=== PATIENT | female | born 1995 | race African-American/Black ===

== ENCOUNTER 2020-04-14 10:16 | Outpatient (CLI) | payer OTHER, SELFPAY ==
--- NOTE | ~2020-04-14 | US_ITS ---
EXAMINATION: US venous doppler LE RT EXAM DATE: 04/14/2020 10:58 INDICATION: Right leg pain. TECHNIQUE: Multiple grayscale, color flow and Doppler images of the right lower extremity deep venous system were obtained and reviewed. There is no prior study for comparison. FINDINGS: The right common femoral, femoral and profunda veins demonstrate normal color flow, respira tory variation, augmentation and compressibility. Compressibility, color flow confirmed within the r ight popliteal, posterior tibial, peroneal, and greater saphenous veins. IMPRESSION: 1. No right lower extremity deep venous thrombosis. Reviewed, dictated and finalized at location A.
== END 2020-04-14 10:17 | disposition home or self-care (01) ==
PROVIDERS: PCP Registered Nurse; Visit Provider Registered Nurse
DX: M79.661 Pain in right lower leg (principal)
CPT/HCPCS: 93971

== ENCOUNTER 2024-12-05 09:35 | Outpatient (CLI) | payer OTHER, SELFPAY ==
--- OUTSIDE RECORDS SUMMARY | 2024-12-05 10:19 | XMS_ITS | Clinical Summary ---
Author Organization [facility] Address [address] [place] [address] Phone Care Team Providers Care Human Resources Office Assistant Name Role Phone Provider, None Primary Care Provider Ksenia Douglass MD Unavailable Allergies No known active allergies Medications metFORMIN (GLUCOPHAGE) 500 MG Tablet 500 mg 2 times daily. 10/14/2018 Active spironolactone (ALDACTONE) 100 MG Tablet Take 100 mg by mouth 2 times daily. 08/19/2022 Active ascorbic acid (ASCORBIC ACID) 500 MG Tablet Take 1 tablet daily with Iron 30 Tablet 1 09/13/2022 Active Drospirenone-Et hinyl Estradiol 3-0.02 MG Tablet Take 1 Tablet by mouth daily. 07/27/2022 Active ferrous sulfate 325 (65 Fe) MG Tablet Take 1 Tablet by mouth in the morning and at bedtime. Take with Vitamin C 60 Tablet 2 12/15/2022 Active Active Problems Problem Noted Date Diagnosed Date B12 deficiency 09/14/2022 Prolactin increased 12/01/2018 PCOS (polycystic ovarian syndrome) 12/01/2018 Class 3 severe obesity due t o excess calories with serious comorbidity and body mass index (BMI) of 45.0 to 49.9 in adult 12/01/2018 Immunizations Immunization Administration Dates Next Due DTAP VACCINE 06/30/1998 DTP-Hib 05/08/1996, 6,1995,04/19 Hepatitis B Vaccine, Pediatric/adolescent 01/23/1996,1995,1995 Hib (HbOC) 06/30/1998 Influenza Vaccine, Quadrivalent, PF 06/23/2019 MMR Vaccine 02/09/2000,05/08/1996 Meningococcal Vaccine 02/05/2010 OPV 01/23/1996,1995,1995 TDAP Vaccine 02/05/2010 Family History Medical History Relation Name Comments No Known Problems Brother 1 No Known Problems Brother 2 Kidney Disease Father Liver Disease Father Diabetes Maternal Grandmother Thyroid Disease Mother No Known Problems Sister 1 No Known Problems Sister 2 No Known Problems Sister 3 Relation Name Status Comments Brother 1 Alive Brother 2 Alive Father Alive Maternal Grandmother Alive Mother Alive Sister 1 Alive Sister 2 Alive Sister 3 Alive Social History Tobacco Use Types Packs/Day Years Used Date Smoking Tobacco: Never Smokeless Tobacco: Never Tobacco Cessation:Counseling Given: Not Answered Alcohol Use Standard Drinks/Week Comments Not Currently 0 (1 standard drink = 0.6 oz pur e alcohol) Sexually Active Control Partners Comments Not Currently Comments No Sex and Gender Information Value Date Recorded Sex Assigned at Not on file Legal Sex Female 2:11 PM [employer] Gender Identity Not on file Sexual Orientation Not on file Last Filed Vital Signs Vital Sign Reading Time Taken Comments Blood Pressure 126/84 12/15/2022 8:53 AM CDT Pulse 87 12/15/2022 8:53 AM CDT Temperature 36.6 C (97.8 F) 12/15/2022 8:53 AM CDT Respiratory Rate 18 12/15/2022 8:53 AM CDT Oxygen Saturation 97% 12/15/2022 8:53 AM CDT Inhaled Oxygen Concentration - - Weight 116.3 kg (256 lb 4.8 oz) 12/15/2022 8:53 AM CDT Height 160 cm (5' 3 ) 12/15/2022 8:53 AM CDT Body Mass Index 45.4 12/15/2022 8:53 AM CDT Plan of Treatment Health Maintenance Due Date Last Done Comments Hepatitis C Virus (HCV) Screening 1995 Pap Smear 02/03/2016 DTaP/Tdap/Td Immunization (6 - Td or Tdap) 02/06/2020 02/05/2010, 06/30/1998, 05/08/1996, Additional history exists Influenza Immunization (#1) 2024 06/23/2019 SARS-COV-2 Immunization ( season) 2024 11/05/2020, 10/08/2020 Respiratory Syncytial Virus (RSV) Immunization (Adult) (1 - 1-dose 75+ series) 2070 Hepatitis B Immunization Completed 996, 1995, 1995 Meningococcal Immunization (ACWY) Aged Out 02/05/2010 No longer eligible based on patient's age to complete this topic Pneumococcal Immunization Combined Aged Out No longer eligible based on patient's age to complete this topic Rotavirus Immunization Aged Out No lo nger eligible based on patient's age to complete this topic Insurance MEDICAID [employer] Care Teams Human Resources Office Assistant Relationship Specialty Start Date End Date Provider, None [place] PCP - General 12/01/18 Ksenia Hinojosa MD [address] [place] [address] Consulting Physician Oncology 09/30/22
== END 2024-12-05 09:36 | disposition home or self-care (01) ==
LOC: ANHLAB 09:42
PROVIDERS: PCP Registered Nurse; Visit Provider Obstetrics & Gynecology Gynecology
DX: O03.9 Complete or unspecified spontaneous abortion without complication (principal)
CPT/HCPCS: 36415; 84702